=== PATIENT | male | born 1970 | race Caucasian/White ===

== ENCOUNTER 2024-06-22 16:00 | Emergency (ER) | payer OTHER, SELFPAY ==
[2024-06-22 16:03] VITALS: BP 248/142
--- NOTE | 2024-06-22 17:02 | ED.GENMED ---
History of Present Illness
General
Chief Complaint: Male Genito-Urinary Symptoms
Source: patient
Exam Limitations: none
Time Seen by Provider: 06/22/24 16:08
Nursing documentation reviewed up to this point in time: agreed with
History of Present Illness
History of Present Illness:
54-year-old male with history of kidney stones states he has a stone stuck in the tip of his penis causing him excruciating pain. He has had no flank or abdominal pain typical of passing a kidney stone.
He has passed relatively large stones from his penis without having had the typical kidney stone pain.
Past History
Past History
ED Past Medical History: HTN and Other (kidney stones)
ED Past Surgical History: None and Urological
Social History
Tobacco: Non-smoker
Alcohol: None
Drug: None
Personal:
Living: with family
Employment: Employed
Family History
Family History: Hypertension
Review of Systems
Review of Systems
Allergies reviewed?: Yes
All Other Systems: ROS reviewed and negative except as documented in HPI and ROS
Constitutional: Denies fever
ABD/GI: Denies abdominal pain, nausea or vomiting
: Reports difficulty voiding and other (excruciating pain in penis)
Phy Exam
Physical Exam
Physical Exam:
GENERAL: Moderate distress due to pain in penis. A&Ox3.
CONSTITUTIONAL: Afebrile.
RESPIRATORY: Regular respirations, nonlabored, lungs clear.
CARDIOVASCULAR: Regular rate and rhythm, no murmurs, no rubs.
GI: Soft, nontender
MUSCULOSKELETAL: Moves with ease. Well perfused.
SKIN: Warm, dry, pink
PSYCH: Anxious, pacing, can't be still, mood and affect. Well kept, interactive and appropriate
NEUROLOGIC: Awake, alert and oriented. No focal neurological deficits
Course
Orders/Labs/Results
Orders:
Orders
06/22/24 16:19
CR Abdomen - 1 View Urgent
Reason For Exam: feels ureteral stone stuck in penis/pain
06/22/24 16:41
Lidocaine 2% [Lidocaine Uro-Jet 2%] 1 syringe .ROUTE .STK-MED ONE
06/22/24 16:43
Lidocaine 2% [Lidocaine Uro-Jet 2%] 1 syringe .ROUTE .STK-MED ONE
06/22/24 17:44
Amlodipine [Norvasc] 10 mg PO NOW STA
06/22/24 17:53
Labetalol [Trandate] 100 mg PO NOW STA
06/22/24 19:43
Urinalysis Reflex To Culture Urgent
Date Specimen was Collected: 06/22/24
Time Specimen was Collected: 19:40
Urine Microscopic Reflex Cult Urgent
Urine Culture Urgent
KYLE Source: U
Specimen Description:
Date Specimen was Collected: 06/22/24
Time Specimen was Collected: 19:40
Abnormal Lab Results
06/22/24
19:43
Ur Occult Blood Reflex 4+ A
(Negative)
Leukocyte Esterase Rfl Trace A
(Negative)
Urine RBC 60-70 A /HPF
(0-2)
Urine WBC (Reflex) 11-15 A /HPF
(0-5)
Urine Albumin (Reflex) 2+ A
(Neg - Trace)
Vital Signs
Initial and Last Documented VS:
Initial Vital Signs
Temp Pulse Resp BP Pulse Ox
98.3 F 114 22 248/142 99
06/22/24 16:03 06/22/24 16:03 06/22/24 16:03 06/22/24 16:03 06/22/24 16:03
Last Documented Vital Signs
Temp Pulse Resp BP Pulse Ox
98.3 F 80 22 168/108 98
06/22/24 16:03 06/22/24 19:01 06/22/24 16:03 06/22/24 19:01 06/22/24 19:01
Procedures
Foreign Body Removal-Skin
Anesthesia: other (Lidocaine gel)
Foreign body removed using: forceps
Foreign body removed: completely (15 mm stone removed from distal urethra with allegator forceps. No bleeding afterwards. )
MDM/Problems Addressed
Differential Diagnosis Includes:
ureteral stone, kidney stone in distal urethra
MDM/Problems Addressed:
54-year-old male with history of kidney stones states he has a stone stuck in the tip of his penis causing him excruciating pain. He has had no flank or abdominal pain typical of passing a kidney stone.
He has passed relatively large stones from his penis without having had the typical kidney stone pain.
Flat plate abdomen reveals a 15 mm stone in the tip of penis.
After injecting lidocaine gel into the urethra, using alligator forcep and approximately 7 x 8 mm black-colored stone was removed from less than 1 cm inside the urethra
Pt felt immediate relief and urinated
Afebrile, no indication for labs/u/a. Dr. Ferreira agrees.
Prior to DC BP still high 184/115. Pt admits he has not taken his BP meds in 3 days. He has them at home.
We gave his daily BP med here prior to DC
After giving his BP meds, DC BP 154/112
He has a BP machine at home he will check his pressure in next 2 days and discuss with PCP if remains high.
Asymptomatic HTN
UA 4+ blood, 11-15 WBCs, will hold off on treating until urine culture results are back.
*Critical Care Note
Total Time (30-74mins, 75-104mins- exclusive of procedures): Not Applicable
ED Attending Note
-
Portions of this chart may have been created with voice recognition software.� Occasional wrong word or��sound alike� substitutions may have occurred due to the inherent limitations of voice recognition software.
Discharge Plan
Departure
Patient Disposition: Home (Routine Discharge)
Date of Disposition: 06/22/24
Time of Disposition: 17:32
Patient with high blood pressure during this ER visit?: Yes
Condition: Good
Discharge Problem:
Calculus in urethra
Instructions: Kidney Stone, Adult ED, BLOOD PRESSURE
Prescriptions:
No Action
geriatric multivitamin-min 1 CAP capsule
1 cap PO DAILY
Urocit-K
1 tab PO BID
Patient Comments:
unsure of dose
aspirin 325 MG tablet
325 mg PO DAILY
[id number] [Excedrin Extra Strength] 1 EACH tablet
1 ea PO PRN PRN (Reason: BURRIS)
labetalol 200 MG tablet
100 mg PO BID Qty: 30 0RF
ibuprofen 600 MG tablet
600 mg PO Q6H Qty: 20 0RF
amlodipine 10 MG tablet
10 mg PO DAILY
tamsulosin 0.4 MG capsule
0.4 mg PO DAILY Qty: 7 1RF
Referrals:
Nguyễn Norris MD [Active] - Call in 1-3 days for appt
Activity Restrictions/Additional Instructions:
As we discussed, follow up with Dr. Norris. Take the stone with you.
Ibuprofen 600 mg every 6 hours as needed for pain
Check your Blood pressure at home in next 2 days, if it remains high, discuss with your doctor as your medications may need adjustment
Interventions
Interventions:
*Risk Screen - Suicide Last Done: 06/22/24 16:03
*General Assessment Last Done: 06/22/24 16:03
*Neglect/Abuse Screening Last Done: 06/22/24 16:03
ED- Fall Risk Assessment Last Done: 06/22/24 17:44
*ED COVID-19 Vaccine History Last Done: 06/22/24 17:44
*Nursing Disposition Last Done: 06/22/24 19:41
ED-Male Genitourinary Assessment Last Done: 06/22/24 16:40
Discharge Date and Time
Discharge Date/Time: 06/22/24 19:47
Print Language: ALBANIAN
[2024-06-22 17:40] VITALS: BP 165/124
[2024-06-22] MEDS: NORVASC 10 MG PO (18:19)
[2024-06-22] MEDS: TRANDATE 100 MG PO (18:20)
[2024-06-22 18:59] VITALS: BP 181/110
[2024-06-22 19:01] VITALS: BP 168/108
[2024-06-22 19:51] LABS: Urine Albumin 2+ (Neg - Trace); Urine Bilirubin Negative (Negative); Urine Character Clear (Clear); Urine Color Straw; Urine Glucose Negative (Negative); Urine Ketone Negative (Negative); Urine Leukocyte Trace (Negative); Urine Nitrite Negative (Negative); Urine Occult Blood 4+ (Negative); Urine Specific Gravity 1.015 (<1.030); Urine Urobilinogen Negative (Neg - 1+)
[2024-06-22 20:07] LABS: Urine Red Blood Cell 60-70 /HPF (0-2)
== END 2024-06-22 19:47 | disposition home or self-care (01) ==
LOC: EMR 16:00
PROVIDERS: Registered Nurse; EMERGENCY PHYSICIAN Emergency Medicine; FAMILY PHYSICIAN Family Medicine
DX: N21.1 Calculus in urethra (principal); I10 Essential (primary) hypertension
CPT/HCPCS: 99284; 74018; 81003; 81015; 87086